=== PATIENT | male | born 1965 | race Caucasian/White ===

== ENCOUNTER 2016-10-19 21:51 | Observation (INO) ==
[2016-10-19] MEDS ORDERED: DILAUDID IV ONE (22:53)
[2016-10-19] MEDS ORDERED: DECADRON IV ONE (22:54)
[2016-10-19] MEDS ORDERED: ROBAXIN 1,000 MG in NS 50 ML IV ONE (22:54)
[2016-10-19] MEDS ORDERED: TORADOL IV ONE (22:54)
[2016-10-19] MEDS ORDERED: ZOFRAN IV ONE (22:59)
--- NOTE | 2016-10-19 23:00 | PROVIDER DOCUMENTATION ---
HPI-Musculoskeletal Pain/Inj <Jefe Gunderson - Last Filed: 10/20/16 01:46> <Micah Houston - Last Filed: 10/20/16 02:05> - GENERAL Chief Complaint: Back Pain Stated Complaint: back pain Time Seen by Provider: 10/19/16 22:33 - HX OF PRESENT ILLNESS-MUSKULOSKELTAL Nature of Presenting Problem: Pt comes with no real PMH. He states that for the last 3 days he has had a dull left lower back ache. It felt very tight but was only 4/10 on the pain scale. Today around 3 hours [employer] he went to set up off of the couch and began having 10/ 10 pain and was unable to get off the couch. He denies any pain at all while laying totally flat and not moving. (Micah Houston) Review of Systems - Adult - REVIEW OF SYSTEMS - ADULT Constitutional: reports: no symptoms reported. denies: chills, fever, fatique, night sweats, weight gain, weight loss Eyes: reports: no symptoms reported. denies: discharge, dry eyes, double vision , eye pain, redness Ears, Nose, Mouth & Throat: reports: no symptoms reported. denies: ear discharge, ear pain, hearing loss, epistaxis, sinus problem, loose teeth, mouth/ dental pain, mouth swelling, hoarseness, throat pain, throat swelling Cardiovascular: reports: no symptoms reported. denies: chest pain, edema, heart murmur, irregular heart rate, palpitations, poor circulation, PND, other Respiratory: reports: no symptoms reported. denies: chronic cough, cough, dyspnea on exertion, excessive sputum production, hemoptysis, shortness of breath, wheezing Gastrointestinal: reports: no symptoms reported. denies: abdominal pain, hematemesis, constipation, diarrhea, difficulty swallowing, frequent heartburn, nausea, poor appetite, rectal bleeding, vomiting Genitourinary: reports: no symptoms reported. denies: dysuria, discharge, frequency, flank pain, frequent UTI's, hematuria, hesitency, urinary retention, urgency Musculoskeletal: reports: see HPI, back pain, muscle aches. denies: bone pain, frequent leg cramps, joint pain, joint swelling, muscle weakness, neck pain Integumentary: reports: no symptoms reported. denies: itching, mole changes, nail changes, rash, skin sores/ulcer, skin thickening Neurological: reports: no symptoms reported. denies: ataxia, dizziness/vertigo , headache/migraines, loss of balance, numbness, seizure, slurred speech, syncope, tremors Psychiatric: reports: no symptoms reported. denies: anxiety, alcohol/drug dependence, emotional problems, insomnia, panic attacks, suicidal thoughts Endocrine: reports: no symptoms reported. denies: change in skin pigment, excessive sweating, goiter, cold intolerance, increased hunger Hematologic/Lymphatic: reports: no symptoms reported. denies: blood clots, easy bruising, lymphedema Allergic/Immunologic: reports: no symptoms reported. denies: allergic reactions , asthma, eczema, frequent infections, hay fever, positive PPD, urticaria All Other Systems: Reviewed and Negative <Micah Houston - Last Filed: 10/20/16 02:05> Past History - Adult - PAST MEDICAL HISTORY-ADULT Review of Records: reports: Old Records Reviewed, Nursing Assessment Review, Medications Reviewed, Social history reviewed & non-contributory. Major Childhood Illnesses: reports: denies history Cardiovascular: reports: A-Fib Respiratory: reports: denies history Gastrointestinal: reports: denies history Obstetrical/Gynecological: reports: denies history Genitourinary: reports: denies history Musculoskeletal: reports: denies history Neurological: reports: denies history Endocrine/Immune: reports: denies history Other Conditions: reports: denies history - PRIOR SURGERIES/PROCEDURES Surgical/Procedure History: reports: reviewed, not pertinent - PRIOR HOSPITALIZATIONS Prior Hospitalizations: reports: none - IMMUNIZATION STATUS Childhood Immunizations: See Nurse Assessment Flu Vaccine: See Nurse Assessment - FAMILY HISTORY Family History: reviewed, not pertinent - SOCIAL HISTORY Smoking: denies Substance Use: none/never Alcohol Use Frequency: never Living Situation: family <Micah Houston - Last Filed: 10/20/16 02:05> Physical Exam-Injury Related - Physical Exam-Injury Related Initial Vital Signs Reviewed: Yes General Appearance: alert, moderate distress Eyes: PERRL/EOMI, pink conjunctivae Head, Ears, Nose, Mouth & Throat: normocephalic/atraumatic, moist mucous membranes, normal ENT inspection Neck: non-tender, full range of motion, supple, normal inspection Respiratory: chest non-tender, lungs clear, normal breath sounds, no pleuratic chest pain, no respiratory distress, no accessory muscle use Cardiovascular: normal peripheral pulses, regular rate, rhythm, no edema, no gallop, no JVD, no murmur Abdominal Exam: normal bowel sounds, non tender, soft Male Genitalia: deferred Back Exam: no CVA tenderness, muscle spasm, vertebral tenderness Extremity: non-tender, no calf tenderness, normal capillary refill Integumentary: normal color, warm/dry, blanching Neurologic: pulp drier II-XII nml as tested, grossly normal Psych/Mental Status: normal mood/affect, normal thought content, normal thought process, oriented x 3 - Glascow Coma Score Best Eye Response (Priscilla): (4) open spontaneously Best Verbal Response ([employer]): (5) oriented Best Motor Response ([employer]): (6) obeys commands <Micah Houston - Last Filed: 10/20/16 02:05> Progress - CT/MRI 1 CT Study: Lumbar Spine Impression: See EMR Report (No fx or acute abnormality. No critical spinal canal or critical neuroforaminal narrowing. Asymmetric broad-based disc bulges in the mid to lower lumbar spine, more prominent on the left.) <Jefe Gunderson - Last Filed: 10/20/16 01:46> - REASSESSMENT Reassessment #1 Time Reassessed: 00:12 Status: unchanged Reassessment Comment: dr lynch at bedside with US r/o AAA 3mm Reassessment #2 Time Reassessed: 02:04 Status: unchanged Reassessment Comment: Pt has normal rectal tone - CONSULTS/PCP/HOSPITALIST Notification #1 *Consult/PCP/Hospitalist*: robles Time Discussed: 01:44 Consult Disposition: Will see in ED, Admit <Micah Houston - Last Filed: 10/20/16 02:05> - PLAN OF CARE/RESULTS Progress/Plan/Lab Results: Laboratory Tests 10/19/16 23:13 Sodium 138 Potassium 4.0 Chloride 102 Carbon Dioxide 23 L Anion Gap 13 BUN 13 Creatinine 0.7 Estimated GFR/1.73 m2 > 60 BUN/Creatinine Ratio 19 Glucose 119 H Calculated Osmolality 277 Calcium 9.1 Total Bilirubin 0.34 AST 16 ALT 17 Alkaline Phosphatase 65 Total Protein 6.5 Albumin 4.1 Globulin 2.4 Albumin/Globulin Ratio 1.7 Orders Category Date Time Status Convert to Saline Loc NOW Care 10/19/16 22:51 Active LUMBAR SPINE W/O CONTRAST [CT] Stat Exams 10/20/16 00:13 Ordered COMPREHENSIVE METABOLIC PANEL [CHEM] Stat Lab 10/19/16 23:13 Completed Dexamethasone [Decadron] Med 10/19/16 22:54 Discontinued 10 mg IV NOW ONE Hydromorphone [Dilaudid] Med 10/19/16 22:53 Discontinued 1 mg IV NOW ONE Hydromorphone [Dilaudid] Med 10/20/16 00:04 Discontinued 2 mg IV NOW ONE Ketorolac [Toradol] Med 10/19/16 22:54 Discontinued 30 mg IV NOW ONE Lorazepam [Ativan] Med 10/20/16 00:11 Discontinued 1 mg IV NOW ONE Methocarbamol [Robaxin] 1,000 mg Med 10/19/16 22:54 Discontinued 0.9% Sodium Chloride Inj [Ns] 50 ml IV NOW Ondansetron [Zofran] Med 10/19/16 22:59 Discontinued 4 mg IV NOW ONE Vital Signs - 24 hr 10/19/16 22:03 Temperature 98.3 F Pulse Rate 99 H Respiratory 16 Rate Blood Pressure 192/112 O2 Sat by Pulse 97 Oximetry Laboratory Tests 10/19/16 10/19/16 10/20/16 23:13 23:13 01:29 WBC 8.58 RBC 4.81 Hgb 15.0 Hct 43.0 MCV 89.4 MCH 31.2 H MCHC 34.9 RDW Std Deviation 13.6 Plt Count 187 MPV 10.8 H Immature Gran % (Auto) 0.2 Neut % (Auto) 78.3 H Lymph % (Auto) 15.5 L Davidson % (Auto) 5.0 Eos % (Auto) 0.8 Baso % (Auto) 0.2 Immature Gran # (Auto) 0.02 Neut # (Auto) 6.71 H Lymph # (Auto) 1.33 Davidson # (Auto) 0.43 Eos # (Auto) 0.07 Baso # (Auto) 0.02 Sodium 138 Potassium 4.0 Chloride 102 Carbon Dioxide 23 L Anion Gap 13 BUN 13 Creatinine 0.7 Estimated GFR/1.73 m2 > 60 BUN/Creatinine Ratio 19 Glucose 119 H Calculated Osmolality 277 Calcium 9.1 Total Bilirubin 0.34 AST 16 ALT 17 Alkaline Phosphatase 65 Total Protein 6.5 Albumin 4.1 Globulin 2.4 Albumin/Globulin Ratio 1.7 Urine Source CLEAN CATCH Urine Color STRAW Urine Turbidity CLEAR Urine pH 6.0 Ur Specific [place] 1.012 Urine Protein NEGATIVE Ur Glucose (Stick) NEGATIVE Ur Ketones (Stick) NEGATIVE Urine Blood NEGATIVE Urine Nitrite NEGATIVE Urine Bilirubin NEGATIVE Urobilinogen Dipstick NORMAL Urine Leukocytes NEGATIVE Urine WBC (Auto) <10 Urine RBC (Auto) <10 U Epithel Cells (Auto) <10 Urine Bacteria (Auto) NEGATIVE (Micah Houston) Departure <Jefe Gunderson - Last Filed: 10/20/16 01:46> - Departure Time of Disposition Order: 00:15 Certified Medical Emergency: Emergent <Micah Houston - Last Filed: 10/20/16 02:05> - Departure DIAGNOSIS: Pain of lumbosacral spine Disposition: ADMITTED INPATIENT 09 Condition: Good Additional Instructions: ED Follow Up Instructions: You have been treated by a care provider in the Emergency Department. These instructions are being provided to you so you can have an understanding of how to care for yourself upon discharge. Upon discharge from the Emergency Department, you are responsible for making arrangements for follow-up care by a physician of your choice. Take all prescribed medications as directed. Return to the Emergency Department immediately for any new or worsening symptoms. You may call the Physician Referral phone number at [phone] to obtain a list of Physicians who are taking new patients. Referrals: Burton Lockett DO [Primary Care Provider] - Attestation - Physician/ RANDOLPH Attestation Patient care was provided by Advanced Practice Provider:: Yes Advanced Practice Provider:: Micah Houston Advanced Practice Provider documentation review:: The Mid-level provider documentation, treatment plan and medical decision making was reviewed by the physician who agrees with all treatment and medical decision making by the MLP. <Micah Houston - Last Filed: 10/20/16 02:05> Physician Attestation
[2016-10-19 23:59] LABS: AGAP 13; ALBUMIN 4.1 g/dL (3.5-5.0); ALKALINE PHOSPHATASE 65 U/L (32-122); BUN 13 mg/dL (8-22); CALCIUM 9.1 mg/dL (8.8-10.2); CHLORIDE 102 mmol/L (98-107); COSMO 277; GOT 16 U/L (10-34); GPT 17 U/L (10-44); SODIUM 138 mmol/L (136-145); TCO2 23 mmol/L (25-35); TOTAL BILIRUBIN 0.34 mg/dL (0.20-1.00); TOTAL PROTEIN 6.5 g/dL (6.3-8.3)
[2016-10-20] MEDS ORDERED: DILAUDID IV ONE (00:04)
[2016-10-20] MEDS ORDERED: ATIVAN IV ONE (00:11)
[2016-10-20 01:23] LABS: MANUAL DIFF NEEDED? NO
[2016-10-20 01:24] LABS: BASO% 0.2 % (0.0-0.8); EOS# 0.07 X1000 (0.0-0.7); EOS% 0.8 % (0.0-10.0); IMM GRAN# 0.02 X1000 (0.0-0.04); IMM GRAN% 0.2 % (0.0-0.5); LYMPH# 1.33 X1000 (1.2-3.4); LYMPH% 15.5 % (20.5-51.1); MCH 31.2 PG (27-31); MCHC 34.9 g/dL (33-37); MCV 89.4 FL (81-99); MONO# 0.43 X1000 (0.11-0.59); MPV 10.8 FL (7.4-10.4); NEUT% 78.3 % (42.2-75.2); PLT 187 X1000 (130-400); RBC 4.81 XMIL (4.7-6.1)
[2016-10-20 01:44] LABS: URINE CULTURE NEEDED? NO; URINE MICRO REVIEW NEEDED? NO; URINE SOURCE CLEAN CATCH
[2016-10-20 01:47] LABS: BILIRUBIN URINE NEGATIVE (NEGATIVE); BLOOD URINE NEGATIVE (NEGATIVE); COLOR STRAW; GLUCOSE URINE NEGATIVE (NEGATIVE); LEUKOCYTES URINE NEGATIVE (NEGATIVE); NITRITE URINE NEGATIVE (NEGATIVE); PROTEIN URINE NEGATIVE (NEGATIVE); SP GRAVITY URINE 1.012; TURBIDITY URINE CLEAR (CLEAR); UROBILINOGEN URINE NORMAL (NORMAL)
[2016-10-20 01:49] LABS: UR EPITHELIAL CELLS <10 /HPF (<10); URINE BACTERIA NEGATIVE /HPF; URINE RBC <10 /HPF (<10); URINE WBC <10 /HPF (<10)
--- NOTE | 2016-10-20 03:41 | HISTORY AND PHYSICAL ---
HISTORY OF PRESENT ILLNESS: This is a 51-year-old, male with an unremarkable past medical history who came to the emergency department complaining of back pain that has been on and off for the last 3 days. He reports that he had left lower backache that was initially feeling very tight, about 4/10 on the pain scale but today around 3 hours ago, the patient was on the couch and when he moved, he started having 10/10 pain, and was unable to get off of the couch. He denies any pain when he is lying down. Upon ER evaluation, they found apparently a bulging disk in the lumbar area. The tried many medications to control the pain. Patient is still hurting so he is going to be admitted for pain management and further evaluation. PAST MEDICAL HISTORY: None. PAST SURGICAL HISTORY: Tonsillectomy. ALLERGIES: No known drug allergies. SOCIAL HISTORY: He drinking alcohol, smoking tobacco, or using illicit drugs. REVIEW OF SYSTEMS: All symptoms are related to H and P. PHYSICAL EXAMINATION: VITALS: Temperature 98.3 degrees, heart rate 82, respiratory rate 16, blood pressure 192/112, and O2 saturation 97% on room air. GENERAL: This is a 51-year-old, male lying in bed, in no acute distress. HEENT: Head is normocephalic and atraumatic. Anicteric sclerae and pale conjunctivae. Mucous membranes are moist. NECK: Supple. No JVD noted. No carotid bruits. No lymphadenopathy. No thyromegaly. CARDIOVASCULAR: S1, S2 heard. No murmurs, gallops, or rubs. Regular rate and rhythm. RESPIRATORY: Clear bilaterally to auscultation. No work of breathing or using accessory muscles. ABDOMEN: Soft, nontender to palpation. Bowel sounds present. No organomegaly. EXTREMITIES: No clubbing, cyanosis, or edema. Peripheral pulses present in both legs. NEUROLOGICAL EXAMINATION: Left lower extremity, he is able to raise to 30 degrees and also on the left side, patient is able to raise leg to 20 degrees. LABORATORY DATA: CBC and BMP are completely unremarkable. ASSESSMENT AND PLAN: 1. Severe back pain. 2. Possible bulging disk in the lumbar spine. PLAN: The patient is going to be admitted to the hospital because of really severe pain in the back. Because of this sudden change and weakness in both lower extremities, and severe pain, we are going to order an MRI tomorrow. We will start using medications like Toradol and Solu-Medrol to control the pain. We are going to also consult physical therapy as well. Further recommendations to follow according to the clinical situation of the patient.
[2016-10-20] MEDS ORDERED: ZOFRAN IV PRN (04:04)
[2016-10-20] MEDS ORDERED: OFIRMEV 1000 MG/ISOTONIC SOLN 100 ML IV SCH ×2 (04:30→05:00)
[2016-10-20] MEDS: NORVASC PO SCH ×2 (04:33→08:50)
[2016-10-20] MEDS ORDERED: PNEUMOVAX 23 IM ONE (04:34)
[2016-10-20] MEDS: NS 1,000 ML IV SCH ×2 (04:37→18:50)
[2016-10-20] MEDS: TORADOL IV SCH ×5 (04:38→16:36)
[2016-10-20] MEDS: NORCO-5 PO PRN ×4 (04:44→19:37)
[2016-10-20] MEDS ORDERED: LOVENOX SUBQ SCH (06:00)
--- NOTE | 2016-10-20 06:24 | Diag Imaging Result Document ---
PROCEDURE NAME: LUMBAR SPINE W/O CONTRAST - 10/20/2016 CT LUMBAR SPINE WITHOUT CONTRAST: FINDINGS: There is good alignment to the lumbar spine. No compressed vertebra. No subluxation. Degenerative bone spurring is found in the lower lumbar spine. No fracture. L1-2: Normal disk. No spinal stenosis. Neither neural foramen is narrowed. L2-3: Small disk bulge. No spinal stenosis. Neither neural foramen is narrowed. L3-4: There is mild bulging to the disk. This is slightly eccentric on the left. No significant neural foraminal narrowing. There is mild spinal stenosis combined with mild facet hypertrophy. L4-5: There is a small disk bulge asymmetric on the left. There is minimal air in the left neural foramen. There is also mild spinal stenosis combined with mild facet hypertrophy. L5-S1: There is a [id number] disk bulge. This is asymmetric on the left. There is minimal narrowing of the left neural foramen. No significant spinal stenosis. IMPRESSION: 1. No fracture. 2. Small bulging disks with mild spinal stenosis and minimal neural foraminal narrowing as described. A preliminary report was given at 1:24 a.m.
[2016-10-20] MEDS ORDERED: PRILOSEC PO SCH (07:00)
[2016-10-20] MEDS ORDERED: SOLU-MEDROL IV SCH (11:00)
[2016-10-20 12:29] VITALS: BP 148/104
--- NOTE | 2016-10-20 15:46 | PROGRESS NOTE ---
DATE: 10/20/2016 SUBJECTIVE: A 51-year-old, who was admitted on 10/19/2016 with unremarkable past medical history. Came to the emergency department complaining of back pain that has been going on for 3 days. Reports that his lower back ached, initially feeling very tight, about 4/10 in pain scale but today the day of admission on the , the pain was very intense, like it was going to make him pass out and lose continence of bowel and bladder. He denies any pain when he is lying down. Upon ER evaluation, found apparently bulging disk in the lumbar area. He tried many medications to control the pain. Patient is still hurting. PAST SURGICAL HISTORY: Tonsillectomy. Had a CT of the lumbar spine. No fracture. Small bulging disk with mild spinal stenosis. Minimal neural foraminal narrowing as described. L2-L3 small disk bulge, eccentric on the left and L3-4 small disk bulge on the left at L4-5 and small to moderate disk bulge at L5-S1. MEDICATIONS: He is on methylprednisone 40 mg IV q.12 hours. He has Norvasc 5 mg daily and he gets hydrocodone 5 mg q.4 hours p.r.n. pain. ASSESSMENT: The pain is mainly with movement and appears to be consistent with intense muscle spasm. No neurologic changes in his strength or sensory to lower extremities, patellar reflexes symmetrical, ankle and foot reflexes symmetrical. PLAN: We will put him on a muscle relaxer and let him have some pain medicines. Advise he get follow up from Neurosurgery or Orthopedics.
--- NOTE | 2016-10-20 15:46 | Diag Imaging Result Document ---
PROCEDURE NAME: MRI LUMBAR SPINE W/WO CONTRAST - 10/20/2016 MRI LUMBAR SPINE WITH AND WITHOUT: FINDINGS: Axial and sagittal images obtained in multiple sequences. These are followed by postcontrasted axial and coronal images. There is good alignment to the lumbar spine. No compressed vertebra. No subluxation. The conus is at L1. L1-2: Normal disk. No spinal stenosis or cord compression. Neither neural foramen is narrowed. L2-3: Normal disk. No spinal stenosis. Neither neural foramen is narrowed. L3-4: Normal disk. There is mild to moderate facet hypertrophy. No spinal stenosis. Neither neural foramen is narrowed. L4-5: Normal disk. Moderate bilateral facet hypertrophy. Minimal spinal stenosis. Neither neural foramen is narrowed. L5-S1: There is a small bulging disk. There is moderate bilateral facet hypertrophy. No significant spinal stenosis. Neither neural foramen is narrowed. No disk herniation. No disk fragments. No enhancing lesion. Tiny nonspecific areas of increased signal on the postcontrasted images posteriorly along the superior endplate of the L5 vertebra. This is not identified on the axial images. IMPRESSION: 1. No disk herniation, disk fragment or significant spinal stenosis. 2. Tiny area of increased signal on the postcontrasted images superiorly and posteriorly within the L5 vertebra without a corresponding axial abnormality. No distinct mass. [facility]
--- NOTE | 2016-10-20 15:50 | Diag Imaging Result Document ---
PROCEDURE NAME: MRI PELVIS W/WO CONTRAST - 10/20/2016 MRI OF THE PELVIS WITH AND WITHOUT: TECHNIQUE: Axial and coronal images were obtained in multiple sequences. FINDINGS: No fracture to either hip. No hip dislocation. No widening of the pubic symphysis. No separation at the sacroiliac joints. No bone marrow edema. The urinary bladder is distended and appears normal except for a tiny amount of air within it. There are also multiple colonic diverticula in the sigmoid colon. The bowel loops are not dilated. IMPRESSION: 1. No fracture. 2. No enhancing lesion on the postcontrast images. 3. Diverticulosis.
[2016-10-20] MEDS ORDERED: ROBAXIN PO PRN (17:30)
--- NOTE | 2016-10-20 18:21 | DISCHARGE SUMMARY ---
ADMISSION DATE: 10/19/2016 DISCHARGE DATE: 10/20/2016 HISTORY AND HOSPITAL COURSE: The patient was admitted this morning with severe pain. This is a 51-year-old male with an unremarkable past medical history, came to the emergency department complaining of back pain that has been on and off for 3 days, left lower backache. It was initially feeling very tight, a 4/10 pain scale. The day of admission, about 3 hours before he came in the patient was on the couch and when he moved he started having 10/10 pain. Unable to get off the couch. Denies any pain when he is lying down. Upon ER evaluation they found apparently some bulging disks in the lumbar area. Tried many indications to control his pain. Did give him some IV methocarbamol or Robaxin and he was able to get comfortable, although when he moves and stands up still experiences lower back pain. Suspect this is consistent with muscle spasm. We did a CT of his back. We also did an MRI and did not find any acute herniated disk. He did have small bulging disks, mild spinal stenosis, minimal neural foraminal narrowing in the lumbar spine. MRI was unremarkable. The patient felt a little better and would like to try to go home. I explained that he still may have some spasm back there and that this may linger on for several weeks. We will give him some Robaxin. We will let him have some [place] for pain p.r.n. Follow up with his primary care doctor. I want him to rest his back. Not to do the stretches. Not to do anything that would aggravated it. We will give him a Medrol Dosepak.
== END 2016-10-20 19:43 | disposition home or self-care (01) ==
LOC: ED 21:51 → 4N 21:52 → UNDODISOB 10-20 18:29
PROVIDERS: ATTEND Emergency Medicine
DX: M62.830 Muscle spasm of back (principal); M54.5 Low back pain; M79.1 Myalgia; I48.91 Unspecified atrial fibrillation; M48.06 Spinal stenosis, lumbar region; M51.26 Other intervertebral disc displacement, lumbar region; Z23 Encounter for immunization
CPT/HCPCS: 72131; 72158; 72197; 80053; 81001; 85025; 90732; A9579; J1170; J1650; J1885; J2060; J2405; J2800; J2920; J7030; 97116-GP; 97530-GP